=== PATIENT | female | born 1975 | race African-American/Black ===

== ENCOUNTER 2020-05-28 23:41 | Emergency (ER) | payer MEDICAID ==
[~2020-05-28] VITALS: Ht 177.8 cm; Wt 95.3 kg
[2020-05-28 23:52] VITALS: BP 149/95
[2020-05-29] MEDS ORDERED: diphenhydrAMINE HCL 25 MG CAPSULE ONE (00:18)
[2020-05-29] MEDS ORDERED: HALOPERIDOL LACTATE INJ 5 MG/ML VIAL ONE (00:18)
[2020-05-29] MEDS ORDERED: LORAZEPAM 1 MG TABLET ONE (00:18)
[2020-05-29] MEDS ORDERED: diphenhydrAMINE HCL 25 MG CAPSULE PO ONE (00:30)
[2020-05-29] MEDS ORDERED: HALOPERIDOL LACTATE INJ 5 MG/ML VIAL IM ONE (00:30)
[2020-05-29] MEDS ORDERED: LORAZEPAM 1 MG TABLET PO ONE (00:30)
--- NOTE | 2020-05-29 00:38 | NUR ---
PT REFUSED MEDICATIONS. PT STATED "IF YOU ARE GOING TO GIVE ME SLEEPING PILLS, I NEED THIS BED TO SLEEP IN." PT WAS INSTRUCTED ON HOW MANY PATIENTS IN OUR E.D. HAVE COVID. PT REFUSED TO LEAVE. SECURITY WAS CALLED, PT LEFT. PT REFUSED TO SIGN HOMELESS WAIVER AND DISCHARGE PAPERWORK. PT REFUSED TO RECIEVE HER RX.
== END 2020-05-29 00:39 | disposition home or self-care (01) ==
LOC: ER 23:44
DX: R44.0 Auditory hallucinations (principal); G47.00 Insomnia, unspecified; I10 Essential (primary) hypertension; Z88.0 Allergy status to penicillin
CPT/HCPCS: J1630; Q0163

== ENCOUNTER 2020-07-01 23:18 | Emergency (ER) | payer MEDICAID ==
[~2020-07-01] VITALS: Ht 172.7 cm; Wt 90.7 kg
--- NOTE | 2020-07-01 23:30 | NUR ---
PT WAS [facility] FROM [facility]S LOBBY. PER PT, PT IS REQUSTING PSYCH ADMISSION AT [facility] DUE TO HEARING VOICES,. PT DENIED SI, HI AT THIS TIME.
[2020-07-01 23:48] LABS: BASOPHILS # (AUTO) 0.1 /CMM (0.0-0.2); BASOPHILS % (AUTO) 0.5 % (0.0-2.0); EOSINOPHILS % (AUTO) 1.4 % (0.0-6.0); HEMATOCRIT 37 % (33-45); LYMPHOCYTES # (AUTO) 2.1 /CMM (0.8-4.8); LYMPHOCYTES % (AUTO) 19.5 % (20.0-44.0); MEAN CORPUSCULAR HGB CONC 33 g/dl (31.0-36.0); MEAN CORPUSCULAR VOLUME 86 fL (82-100); MONOCYTES # (AUTO) 0.8 /CMM (0.1-1.30); MONOCYTES % (AUTO) 7.6 % (2.0-12.0); NEUTROPHILS # (AUTO) 7.7 /CMM (1.8-8.9); PLATELET COUNT (AUTO) 348 /CMM (150-450); RED BLOOD CELL COUNT(AUTO) 4.27 MIL/uL (4.0-5.2); WHITE BLOOD COUNT (AUTO) 10.8 K/uL (4.3-11.0)
[2020-07-01 23:57] LABS: CALCIUM, SERUM 9.3 mg/dL (8.5-10.1); CARBON DIOXIDE 26 mmol/L (21-32); CHLORIDE 103 mmol/L (98-107); CREATININE 1.1 mg/dL (0.6-1.3); GLUCOSE 90 mg/dL (74-106); POTASSIUM 3.9 mmol/L (3.5-5.1); SODIUM SERUM 138 mmol/L (136-145); UREA NITROGEN, BLOOD 11 mg/dL (7-18)
[2020-07-02 00:03] LABS: ALANINE AMINOTRANSFERASE 32 U/L (12-78); ALBUMIN 3.6 g/dL (3.4-5.0); ALCOHOL, BLOOD 5 mg/dL (0-0); ALKALINE PHOSPHATASE 85 U/L (46-116); ASPARTATE AMINOTRANSFERASE 37 U/L (15-37); BILIRUBIN,DIRECT 0.1 mg/dL (0.0-0.2); BILIRUBIN,TOTAL 0.4 mg/dL (0.2-1.0); TOTAL PROTEIN, SERUM 8.4 g/dL (6.4-8.2)
[2020-07-02 00:07] LABS: ACETAMINOPHEN < 3 ug/ml (10-30)
[2020-07-02 00:20] LABS: BILIRUBIN,URINE SMALL (NEGATIVE); COLOR,URINE YELLOW (YELLOW); LEUKOCYTE ESTERASE ,URINE Small (NEGATIVE); NITRITE, URINE Negative (NEGATIVE); PH,URINE 5.5 (5.0-8.0); PROTEIN,URINE 30 mg/dl (NEGATIVE); UGLUCOSE Negative (NEGATIVE); UROBILINOGEN,URINE 0.2 EU/dL (0.2)
[2020-07-02 00:21] LABS: BACTERIA,URINE 1+ /HPF (None Seen); SQUAMOUS EPITHELIAL CELL,UR Few /HPF (None Seen)
--- NOTE | 2020-07-02 01:02 | NUR ---
call from lab. rapid covid negative.
--- NOTE | 2020-07-02 03:13 | NUR ---
FACESHEET AND CLINICAL FAXED TO [facility] INTAKE FOR VOLUNTARY PSYCH ADMISSION.
[2020-07-02 04:47] VITALS: BP 149/86
--- NOTE | 2020-07-02 04:50 | NUR ---
called so [facility] intake and informed Nancy of the the v/s
--- NOTE | 2020-07-02 05:05 | NUR ---
Call from Eric Davis. Pt accepted to [facility] by Dr Tracey. # for report [phone]
--- NOTE | 2020-07-02 05:23 | NUR ---
[facility], PT HAS A TRIP NUMBER [id number]. WILL CALL BACK WITH
--- NOTE | 2020-07-02 05:40 | NUR ---
[facility] ETA [phone]
--- NOTE | 2020-07-02 05:43 | NUR ---
MULTIPLE ATTEMPTS TO GIVE REPORT TO [facility]. NO ANSWER. WILL FOLLOW UP
--- NOTE | 2020-07-02 06:34 | NUR ---
REPORT GIVEN TO JUAN JOSE GARCÍA FROM [facility]
--- NOTE | 2020-07-02 09:00 | NUR ---
TRANSPORT AMBULANCE ARRIVED. PT NO LONGER AT ROOM. PT ELOPED BEFORE BEING TRANSFERED.
--- NOTE | 2020-07-02 10:36 | NUR ---
Internal Affairs Commander Consult: SW attempted to meet with patient at the Emergency waiting room. Pt is no longer at the Emergency Room. Pt has left against medical leave.
== END 2020-07-02 10:34 | disposition left against medical advice (07) ==
LOC: ER 23:19
DX: F20.9 Schizophrenia, unspecified (principal); I10 Essential (primary) hypertension; Z59.0 Homelessness; N39.0 Urinary tract infection, site not specified; Z20.822 Contact with and (suspected) exposure to COVID-19
CPT/HCPCS: 36415; 80048; 80076; 80299; 80307; 80320; 81001; 84703; 85025; 87086; 87426; 99284; C9803; G0480